=== PATIENT | male | born 1995 | race Caucasian/White ===

== ENCOUNTER 2018-05-02 06:44 | Emergency (ER) | payer OTHER ==
[2018-05-02 07:15] VITALS: BP 105/65; PULSE 62; TEMP 99.2; BMI 26.9
[2018-05-02] MEDS ORDERED: IBUPROFEN 600 MG TABLET (FP) PO ONE (08:12)
[2018-05-02] MEDS ORDERED: IBUPROFEN 400 MG TABLET (FP) PO ONE (08:15)
--- NOTE | 2018-05-02 08:29 | PDOC ---
History of Present Illness - General Chief Complaint: Sore Throat Stated Complaint: SORE THROAT,HEADACHE Time Seen by Provider: 05/02/18 07:21 History Source: Patient - History of Present Illness Timing/Duration: reports: other Associated Symptoms: reports: earache, headache, sore throat. denies: chest pain/soreness, cough, muscle aches, nasal congestion, nasal drainage Past History - Past Medical History Allergies/Adverse Reactions: Allergies Allergy/AdvReac Type Severity Reaction Status Date / Time No Known Allergies Allergy Verified 05/02/18 07:11 Home Medications: Ambulatory Orders Amoxicillin - [Amoxicillin 875mg Tablet -] 875 mg PO BID #14 tab 05/02/18 Asthma: Yes COPD: No - Immunization History Immunization Up to Date: Yes - Suicide/Smoking/Psychosocial Hx Smoking Status: No Smoking History: Current every day smoker Have you smoked in the past 12 months: Yes Number of Cigarettes Smoked Daily: 2 Information on smoking cessation initiated: No Hx Alcohol Use: No Drug/Substance Use Hx: No Substance Use Type: None Review of Systems - Review of Systems Constitutional: No: Chills, Fever HEENTM: Yes: Ear Pain, Throat Pain. No: Nose Congestion Respiratory: No: Cough *Physical Exam - Vital Signs Last Vital Signs Temp Pulse Resp BP Pulse Ox 99.2 F 62 16 105/65 100 05/02/18 07:05 05/02/18 07:05 05/02/18 07:05 05/02/18 07:05 05/02/18 07:05 - Physical Exam General Appearance: Yes: Appropriately Dressed. No: Apparent Distress HEENT: positive: Normal ENT Inspection, Normal Voice, TMs Normal, Pharynx Normal. negative: Scleral Icterus (R), Scleral Icterus (L) Neck: positive: Supple. negative: Lymphadenopathy (R), Lymphadenopathy (L) Respiratory/Chest: negative: Respiratory Distress Integumentary: positive: Dry, Warm Neurologic: positive: Fully Oriented, Alert, Normal Mood/Affect ED Treatment Course - Medications Given in the ED: ED Medications Discontinued Medications Generic Name Dose Route Start Last Admin Trade Name Freq PRN Reason Stop Dose Admin Ibuprofen 600 mg 05/02/18 08:15 05/02/18 08:19 Motrin - PO 05/02/18 08:16 600 mg ONCE ONE Administration Medical Decision Making - Medical Decision Making 05/02/18 08:27 22-year-old male, no significant history here with sore throat, w/ R ear pain and GANN for several days. No cough, body aches, neck stiffness, fever or chills. Multiple family members at home with similar symptoms. Patient well- appearing and stable with unremarkable exam. Rapid strep positive. Will dc w/ abx and OTC pain meds as needed *DC/Admit/Observation/Transfer Diagnosis at time of Disposition: Pharyngitis Qualifiers: Pharyngitis/tonsillitis etiology: unspecified etiology Qualified Code(s): J02.9 - Acute pharyngitis, unspecified - Discharge Dispostion Disposition: HOME Condition at time of disposition: Good - Prescriptions Prescriptions: Amoxicillin - [Amoxicillin 875mg Tablet -] 875 mg PO BID #14 tab - Referrals Referrals: Bobby Chamorro MD [Primary Care Provider] - - Patient Instructions Printed Discharge Instructions: Strep Throat Additional Instructions: You have strep throat Take antibiotics as directed and take 600-800 mg Motrin for pain as needed - Post Discharge Activity Forms/Work/School Notes: Back to Work
== END 2018-05-02 08:55 | disposition home or self-care (01) ==
LOC: JER 06:44
DX: J02.9 Acute pharyngitis, unspecified (principal); F17.210 Nicotine dependence, cigarettes, uncomplicated; J45.909 Unspecified asthma, uncomplicated
CPT/HCPCS: 87070; 87077; 87430; 99281-25

== ENCOUNTER 2020-03-16 10:45 | Emergency (ER) | payer SELFPAY ==
[2020-03-16 10:50] VITALS: BP 145/80; PULSE 100; TEMP 98.5; BMI 24.7
[2020-03-16] MEDS ORDERED: IBUPROFEN 600 MG TABLET (FP) PO ONE ×2 (11:33→11:34)
[2020-03-16] MEDS ORDERED: ACETAMINOPHEN 500 MG TABLET (FP) PO ONE (11:33)
[2020-03-16] MEDS ORDERED: ACETAMINOPHEN 500 MG TABLET (FP) ONE (11:35)
--- NOTE | 2020-03-16 11:38 | PDOC ---
History of Present Illness - General Chief Complaint: Toothache Stated Complaint: TOOTH INFECTION /SWELLING Time Seen by Provider: 03/16/20 11:11 - History of Present Illness Initial Comments: 03/16/20 11:36 24-year-old male with dental abscess x4 days without systemic symptoms Past History - Medical History Allergies/Adverse Reactions: Allergies Allergy/AdvReac Type Severity Reaction Status Date / Time No Known Allergies Allergy Verified 03/16/20 10:47 Home Medications: Ambulatory Orders Amoxicillin - [Amoxicillin 875mg Tablet -] 875 mg PO BID #14 tab 05/02/18 Amoxicillin 875 mg PO BID #20 tablet 03/16/20 Ibuprofen [Motrin -] 600 mg PO TID #30 tablet 03/16/20 Asthma: Yes COPD: No - Immunization History Immunization Up to Date: No - Psycho-Social/Smoking History Smoking Status: No Smoking History: Current every day smoker Have you smoked in the past 12 months: Yes Number of Cigarettes Smoked Daily: 2 Information on smoking cessation initiated: No - Substance Abuse Hx (Audit-C & DAST Scrn) How often the patient has a drink containing alcohol: Never Score: In Men: 4 or > Positive; In Women: 3 or > Positive: 0 Screen Result (Pos requires Nsg. Audit-10AR): Negative In the last yr the pt used illegal drug/Rx for NonMed reason: No Score: Yes response is considered Positive: 0 Screen Result (Positive result requires Nsg. DAST-10): Negative Review of Systems - Review of Systems Constitutional: No: Fever HEENTM: Yes: Mouth Pain *Physical Exam - Vital Signs Last Vital Signs Temp Pulse Resp BP Pulse Ox 98.5 F 100 H 20 145/80 100 03/16/20 10:48 03/16/20 10:48 03/16/20 10:48 03/16/20 10:48 03/16/20 10:48 - Physical Exam 03/16/20 11:36 Right sided lower jaw swelling with fluctuance on the right lower bugle mucosa tenderness and erythema Medical Decision Making - Medical Decision Making 03/16/20 11:36 Using an 11 blade a small puncture wound was made in the abscess purulence was expressed and spit into the same. Antibiotics and Motrin follow-up with urgent care dental I have reviewed the pathophysiology with the patient. They are in agreement with the treatment plan all questions were answered to their satisfaction. Understanding for follow-up without fail was also conveyed to the patient. Again they are in agreement. Discharge - Discharge Information Problems reviewed: Yes Clinical Impression/Diagnosis: Dental abscess Condition: Stable Disposition: HOME - Admission No - Additional Discharge Information Prescriptions: Amoxicillin 875 mg PO BID #20 tablet Ibuprofen [Motrin -] 600 mg PO TID #30 tablet - Follow up/Referral Referrals: Urgent Care [facility] [Outside] - Patient Discharge Instructions Additional Instructions: Return to the emergency room for worsening symptoms. You were given a dose of prescription strength Motrin and Tylenol in the emergency room for pain. Do not start the Motrin or [id number] Tylenol until 6 hours from now. Please take the antibiotics as directed and start those right away. Return to the emergency room for worsening symptoms and without fail follow-up with urgent care dental in 1 to 2 days for further evaluation and treatment options. - Post Discharge Activity
== END 2020-03-16 11:52 | disposition home or self-care (01) ==
LOC: JERFT 10:45
DX: K04.7 Periapical abscess without sinus (principal)
CPT/HCPCS: 99283-25

== ENCOUNTER 2020-11-28 11:26 | Emergency (ER) | payer SELFPAY ==
[2020-11-28 11:45] VITALS: BP 123/82; PULSE 69; TEMP 99; BMI 26.6
== END 2020-11-28 12:37 | disposition home or self-care (01) ==
LOC: JER 11:26 → JERFT 11:26
PROC: 0N9 Head and Facial Bones, Drainage (ICD-10-PCS; principal; 2020-11-28)
DX: K12.2 Cellulitis and abscess of mouth (principal)
CPT/HCPCS: 99282-25